=== PATIENT | female | born 1940 | race Caucasian/White ===

== ENCOUNTER → 2016-10-04 | Outpatient (CLI) | payer OTHER, BC ==
[~2016-10-04] MED LIST: CALCTAB5 PO; CITRUCEL PO; COEN1CAP46 PO; FLVHFA110 INH; GLUCOSAMINE/CHOND PO; LEVO1TAB33 PO; LISI-461 PO; MULT-506 PO; OMEG10007 PO; RED YEAST RICE PO; TIZA4CAP PO
--- NOTE | 2016-10-04 13:11 | MAMMOGRAPHY REPORT ---
BILATERAL DIGITAL SCREENING MAMMOGRAM WITH CAD: 10/04/2016 CLINICAL HISTORY: Routine screening. Patient has no complaints. TECHNIQUE: Current study was also evaluated with a Computer Aided Detection (CAD) system. Bilatera l CC and MLO views were obtained. COMPARISON: Comparison is made to exams dated: 10/02/2015 mammogram, 09/28/2014 mammogram, 09/13/2013 mammogram, 09/09/2012 mammogram, 09/09/2011 mammogram, and 08/23/2010 mammogram - [facility]. BREAST COMPOSITION: There are scattered areas of fibroglandular density in both breasts. FINDINGS: No suspicious masses, calcifications, or areas of architectural distortion are noted in e ither breast. There has been no significant interval change compared to prior exams. Bilateral asym metries and bilateral benign-appearing calcifications are not significantly changed. IMPRESSION: ACR BI-RADS CATEGORY 2: BENIGN There is no mammographic evidence of malignancy. A 1 year screening mammogram is recommended. The p atient will receive written notification of the results. Approximately 10% of breast cancers are not detected with mammography. A negative mammographic repor t should not delay biopsy if a clinically suggestive mass is present. Anahi Marcelino M.D. ah/:10/04/2016 07:46:09 Yield Loss Inspector: Kristie GUNTER(Carolin)(M), [facility] letter sent: Normal 1/2 BI-RADS Code: ACR BI-RADS Category 2: Benign
== END | disposition home or self-care (01) ==
LOC: C.MAMM 07:30
PROVIDERS: ATTEND Family Medicine
DX: Z12.31 Encounter for screening mammogram for malignant neoplasm of breast (principal)

== ENCOUNTER → 2017-06-06 | Outpatient (CLI) | payer OTHER, BC | END | disposition home or self-care (01) | LOC: C.RDSM 08:00 | PROVIDERS: ATTEND Orthopaedic Surgery | DX: R52 Pain, unspecified (principal) ==

== ENCOUNTER → 2017-10-08 | Outpatient (CLI) | payer OTHER, BC ==
--- NOTE | 2017-10-08 14:22 | MAMMOGRAPHY REPORT ---
BILATERAL DIGITAL SCREENING MAMMOGRAM TOMOSYNTHESIS WITH CAD: 10/08/2017 CLINICAL HISTORY: Routine screening. Patient has no complaints. TECHNIQUE: Breast tomosynthesis in addition to standard 2D mammography was performed. Current study was also evaluated with a Computer Aided Detection (CAD) system. COMPARISON: Comparison is made to exams dated: 10/04/2016 mammogram, 10/02/2015 mammogram, 09/28/2014 m ammogram, 09/13/2013 mammogram, 09/09/2012 mammogram, and 09/09/2011 mammogram - [facility] enter. BREAST COMPOSITION: There are scattered areas of fibroglandular density in both breasts. 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 Stable focal asymmetry in the upper outer posterior right breast. Stabl e nodular asymmetries in the right breast along the posterior nipple line on the CC view, medial and lateral left breast. No suspicious mass, architectural distortion or cluster of microcalcifications is seen. IMPRESSION: ACR BI-RADS CATEGORY 1: NEGATIVE There is no mammographic evidence of malignancy. A 1 year screening mammogram is recommended. The pa tient will receive written notification of the results. Approximately 10% of breast cancers are not detected with mammography. A negative mammographic report should not delay biopsy if a clinically suggestive mass is present. Miranda Reaves M.D. ay/:10/08/2017 07:55:50 Ethanol Operator: Amee Brizuela [facility] letter sent: Normal 1/2 BI-RADS Code: ACR BI-RADS Category 1: Negative
== END | disposition home or self-care (01) ==
LOC: C.MAMM 07:27
PROVIDERS: ATTEND Family Medicine
DX: Z12.31 Encounter for screening mammogram for malignant neoplasm of breast (principal)

== ENCOUNTER 2022-05-02 05:31 | Observation (INO) ==
--- NOTE | 2022-04-08 11:36 | PAT Medication Instructions ---
Medication Instructions Date of Service April 08, 2022 Home Medications calcium carbonate 600 mg-vitamin D3 20 mcg (800 unit) chewable tablet (Caltrate 600 plus D) 1 tab PO BID coQ10 (ubiquinol) 200 mg capsule 200 mg PO QAM glucosamine sulf dipot chlr,msm,chond 550 mg-C 30 mg-viridiana 1 mg capsule (Glucosamine Chondroitin) 2 cap PO QAM lisinopril 10 mg tablet 10 mg PO QAM methylcellulose (laxative) 500 mg tablet (Citrucel) 500 mg PO QAM multivitamin 1 tab PO QAM omega 3-chy-ugd-fish oil 1,000 mg (120 mg-180 mg) capsule (Fish Oil) 1 cap PO QAM albuterol 90 mcg/actuation aerosol inhaler 90 mcg inhalation UD PRN atorvastatin 10 mg tablet (Lipitor) 10 mg PO QAM lactobacillus combination no.4 3 billion cell capsule (Probiotic) 3,000 mmu cells PO QAM mometasone 50 mcg/actuation nasal spray 2 spray intranasal QAM STOP taking 2 weeks before surgery coQ10 (ubiquinol) 200 mg capsule 200 mg PO QAM glucosamine sulf dipot chlr,msm,chond 550 mg-C 30 mg-viridiana 1 mg capsule (Glucosamine Chondroitin) 2 cap PO QAM omega 8-jwj-liw-fish oil 1,000 mg (120 mg-180 mg) capsule (Fish Oil) 1 cap PO QAM DO NOT take the morning of surgery calcium carbonate 600 mg-vitamin D3 20 mcg (800 unit) chewable tablet (Caltrate 600 plus D) 1 tab PO BID lisinopril 10 mg tablet 10 mg PO QAM methylcellulose (laxative) 500 mg tablet (Citrucel) 500 mg PO QAM multivitamin 1 tab PO QAM lactobacillus combination no.4 3 billion cell capsule (Probiotic) 3,000 mmu cells PO QAM Take morning of surgery With a small sip of water, OTHERWISE NOTHING TO EAT OR DRINK AFTER MIDNIGHT: albuterol 90 mcg/actuation aerosol inhaler 90 mcg inhalation UD PRN(use if needed; please bring with you to hospital day of surgery if possible) atorvastatin 10 mg tablet (Lipitor) 10 mg PO QAM mometasone 50 mcg/actuation nasal spray 2 spray intranasal QAM Take evening before surgery calcium carbonate 600 mg-vitamin D3 20 mcg (800 unit) chewable tablet (Caltrate 600 plus D) 1 tab PO BID albuterol 90 mcg/actuation aerosol inhaler 90 mcg inhalation UD PRN(if needed) Other Notes If you have any questions please call us at [phone] or [phone] or [phone] or [phone]
--- NOTE | 2022-04-10 11:19 | Anesthesiology Consultation ---
Date of Service April 10, 2022 Assessment & Plan (1) Encounter for pre-operative examination: - awaiting stress testing and cardiology clearance. Stress test scheduled 04/18/22 per pt. - cardiology 04/03/22 [facility]: "...preoperative cardiovascular evaluation, bifascicular block...occasional bilateral pedal edema over the years...risk stratification prior to orthopedic surgery. Stress testing recommended due to limited functional capacity, abnormal ECG, risk factors, and soft systolic murmur on examination...Patient instructed to monitor for any lightheadedness, dizziness, syncope, or near syncope..." - PCP 04/01/22 [facility]: "...L [facility] replacement...[facility]...sometimes coming out of anesthesia she gets some nausea...EKG shows a new bifascicular block...get in with cardiology before clearing for surgery. Outside of her further visit with cardiology she is optimized for surgery with low likelihood of sariah-operative complications..." Outpatient joint assessment: Patient is currently scheduled for inpatient pathway. If re-evaluated pending system levels during current pandemic/surgeon requests outpatient pathway, patient is not acceptable candidate for outpatient joint program from anesthesia standpoint. Chart Review Chart Review: Pending: Refer to Additional Notes / Consult section and Patient seen in Pre Admission Testing Teaching & Discussion Pre-Anesthesia Teaching/Discussion Notes: Instructed NPO after midnight before surgery, except medications with 15 cc of water. Medication instructions provided according to the PAT guidelines. History Surgery Operation Date: 05/02/22 07:00 Proposed Procedures p Left Total Knee Arthroplasty, Possible Lateral Retinacular - Akhil Hodges MD Height/Weight Height: 5 ft 4 in Weight: 81.7 kg Allergies Allergy/AdvReac Type Severity Reaction Status Date / Time Sulfa (Sulfonamide Allergy Mild Unknown Verified 04/05/22 09:17 Antibiotics) Medications Home Medications Medication Instructions Recorded Confirmed Last Taken calcium carbonate 600 mg-vitamin 1 tab PO BID 10/12/18 04/05/22 10/12/18 D3 20 mcg (800 unit) chewable tablet (Caltrate 600 plus D) coQ10 (ubiquinol) 200 mg capsule 200 mg PO QAM 10/12/18 04/05/22 10/12/18 glucosamine sulf dipot 2 cap PO QAM 10/12/18 04/05/22 10/12/18 chlr,msm,chond 550 mg-C 30 mg-viridiana 1 mg capsule (Glucosamine Chondroitin) lisinopril 10 mg tablet 10 mg PO QAM 10/12/18 04/05/22 10/11/18 methylcellulose (laxative) 500 mg 500 mg PO QAM 10/12/18 04/05/22 10/12/18 tablet (Citrucel) multivitamin 1 tab PO QAM 10/12/18 04/05/22 10/12/18 omega 6-dpi-ivj-fish oil 1,000 mg 1 cap PO QAM 10/12/18 04/05/22 10/12/18 (120 mg-180 mg) capsule (Fish Oil) albuterol 90 mcg/actuation aerosol 90 mcg inhalation UD PRN Shortness 04/05/22 04/05/22 Unknown inhaler Of Breath Or Wheezing atorvastatin 10 mg tablet (Lipitor) 10 mg PO QAM 04/05/22 04/05/22 Unknown lactobacillus combination no.4 3 3,000 mmu cells PO QAM 04/05/22 04/05/22 Unknown billion cell capsule (Probiotic) mometasone 50 mcg/actuation nasal 2 spray intranasal QAM 04/05/22 04/05/22 Unknown spray Past Medical History Medical History Bifascicular block new, upcoming stress test ordered by [facility] cardiology Esophageal reflux controlled, stable pe rpt Hearing loss History of skin cancer multiple, melanoma, pt states also multiple other types Hyperlipidemia Hypertension controlled, stable per pt Mild asthma has not used inhaler in a year or two Nausea and vomiting after administration of anesthetic agent and took a while "to come around"; denies needing scop patch Prediabetes A1c < 6.5% Patient denies h/o stroke, seizures, heart attack, heart failure, blood clots or blood transfusions. Exercise / Class Metabolic Activity III < 4 Walking/Shop/Light housework (denies CP or SOB with usual activities) Past Family History Family History Other No family history of adverse response to anesthesia Past Surgical History Surgical History History of appendectomy Hx of arthroscopic knee surgery pt unsure, believes L Hx of bladder repair surgery bladder tack Hx of cataract extraction Hx of cholecystectomy Hx of colonoscopy Hx of hemorrhoidectomy Hx of hernia repair Hx of laparoscopy appendix and ovarian cyst removed Past Anesthesia History No Family Hx of Anesthesia Complications and Other (slow to wake, denies re- intubation) History of PONV No Hx of Motion Sickness and History of PONV (jarrett needing scop patch) Social History Smoking Status: Never smoker Do You Dip or Chew Tobacco: No Hx Alcohol Use: Yes (socially) alcohol intake frequency: a few times a week Hx Substance Use: No substance use type: does not use Review of Systems Snoring, denies witnessed apneas. She reports negative sleep study yrs ago. Patient denies chest pain, shortness of breath, dyspnea on exertion, fever, chills, cough, wheezing, dizziness, lightheadedness, near syncope, or palpitations. Physical Exam Vital Signs Vitals BP 142/84 manual P 66 TEMP 97.7 SP02 96% on RA RESP 17 Physical Full cervical extension range of motion without pain TMD 3.5 finger breadths Mallampati Score 3 Dentition: intact, several caps/crowns and veneers upper front; denies chipped or loose teeth, or bridges Lungs: normal respiratory effort. Clear throughout to auscultation, no adventitious breath sounds Cardiac: regular rate and rhythm, 2/6 systolic murmur noted Carotid arteries: negative bruit bilat Lab Results Anesthesia Preop Results Results Anesthesia Widget: WBC 5.58 K/ul (4.8-10.8) 04/10/22 Hgb 13.6 g/dl (12.0-16.0) 04/10/22 Hct 40.4 % (34.1-44.9) 04/10/22 Plt 176 K/uL (130-400) 04/10/22 Na 139 mmol/L (136-145) 04/10/22 K 4.1 mmol/L (3.5-5.1) 04/10/22 Cl 107 mmol/L (98-107) 04/10/22 CO2 27 mmol/L (21-32) 04/10/22 BUN 24 mg/dl (6-23) H 04/10/22 Creat 0.72 mg/dl (0.6-1.2) 04/10/22 Glucose Level 91 mg/dl (70-99(Fasting)) 04/10/22 PT 11.3 Seconds (9.0-12.0) 04/10/22 PTT 26.8 Seconds (21.0-31.0) 04/10/22 INR 1.1 (0.9-1.1) 04/10/22 Urine Color Yellow 04/10/22 Urine Appearance Clear (Clear) 04/10/22 Urine pH 7.5 (4.5-7.5) 04/10/22 Urine Specific [place] 1.019 (1.000-1.030) 04/10/22 Urine Protein Negative (Negative) 04/10/22 Urine Glucose (UA) Negative (Negative) 04/10/22 Urine Ketones Negative (Negative) 04/10/22 Urine Blood Negative (Negative) 04/10/22 Urine Nitrite Negative (Negative) 04/10/22 Urine Bilirubin Negative (Negative) 04/10/22 Urine Urobilinogen Negative (Negative) 04/10/22 Urine Leukocyte Esterase Trace (Negative) H 04/10/22 Urine WBC (Auto) 1-5 /hpf (0-5) 04/10/22 Urine RBC (Auto) 0-4 /hpf (0-4) 04/10/22 Urine Hyaline Casts (Auto) 0 /lpf (0-5) 04/10/22 Urine Epithelial Cells (Auto) 20-30 /lpf (0-5) H 04/10/22 Urine Bacteria (Auto) Negative (Negative) 04/10/22 Blood Type A Positive 04/10/22 Antibody Screen NEGATIVE 04/10/22 Testing Laboratory Results A1c 5.8% 02/18/22 Electrocardiogram Date: 04/01/22 Sinus bradycardia, rate 57 bpm RBBB Left anterior fascicular block Bifascicular block Moderate voltage criteria for LVH, may be normal variant Bifascicular block is now present COVID-19 Risk Screen Screening Information COVID-19 Screen Date: 04/10/22 Exposure 21 Days Family/Household +COVID Last 21 Days: No Exposure 10 Days Any COVID Exposure Last 10 Days: No Symptoms Last 10 Days Experienced COVID Sx Last 10 Days: No + COVID 0-90 Days COVID + in Last 0-90 Days: No
--- NOTE | 2022-04-10 14:19 | History & Physical Report ---
Date of Service April 10, 2022 Assessment & Plan (1) Osteoarthritis of left knee: Plan: PRE-OP Diagnosis: Left knee osteoarthritis Planned Procedure: Left total knee arthroplasty; possible lateral retinacular release Plan: Scheduled to undergo this procedure at the [facility] with a 23-hour observation admission on April with Dr. Hodges. Risks and complications of the procedure such as: Infection, bleeding, pain, scarring, nerve blood vessel damage, weakness, wound problems, stiffness, incomplete relief of symptoms, hardware failure, hardware loosening, wear, fracture, tendon or ligament injury, blood clots, embolism, heart attack, stroke and were explained to the patient at her visit today. Informed consent to perform the procedure was obtained. Patient also understands risks of proceeding with surgical intervention during the COVID-19 pandemic. Currently she is asymptomatic and has not been in contact with anyone positive for the virus recently. Patient is scheduled to meet with anesthesia later this morning. While there she will obtain a CBC with differential, complete metabolic panel, PT/INR, blood type and screen, urinalysis, urine culture and sensitivity, EKG, hemoglobin A1c and a nasal culture for MRSA. Patient states that she went with her primary care provider on April 01 for her preoperative clearance. She was also recommended to see a blueprint tracer. She states she has an appointment with Dr. Alvarez on April 18. I provided her with a clearance form to take with her at that appointment. During today's visit we reviewed the total knee packet. We discussed discharge planning from the hospital. Patient states that she will do her rehab at [facility]. I provided her with an order for physical therapy. Patient states that she has a walker she will bring with her on the day of the procedure. I provided her with paperwork to obtain a handicap placard for her vehicle. We talked about antibiotic use before dental procedures after having joint replacement surgery. I also provided her with information about lectures that [facility] offers about total joint replacement surgery and provide her with contact information to set up a Zoom appointment. Advised the patient that she will be discharged from the hospital on postoperative day 1 if she does well with physical therapy. I will be sure that she has prescriptions for narcotic pain medication and anti- inflammatory. We will have her on an 81 mg aspirin twice daily for the first month following surgery. Patient is scheduled for 2-week postoperative follow- up with myself on May 17 at 2 PM. Patient verbalized understanding of all information provided during today's visit. She thinks for the care that she received. She has questions or concerns should arise prior to surgery, she will contact clinic. This chart was completed utilizing RoomActually voice recognition software. Grammatical errors, random word insertions, pronoun errors, and in complete sentences are an occasional consequence of the system. Any questions or concerns about the content, text, or information contained within the body of this dictation should be addressed directly to the physician for clarification. History of Present Illness Chief Complaint: Chief Complaint: Left knee pain Primary Care Provider: Jaylyn Garcia DO History of Present Illness (including history relevant to procedure): This 82-year-old female presents the clinic today for preoperative history and physical. Patient complains of a several year history of significant left knee pain. She states she has had corticosteroid injections, viscosupplementation injections, use nonsteroidal agents and attended physical therapy. She states over the past few months the pain has become much worse, limiting her from partaking in exercise classes. She states that at times she has difficulty transitioning from a seated to a standing position. Patient feels that she is tried all conservative measures and at this point is ready to proceed with surgical intervention. Patient lives at [facility]. Review Of Systems: A 12 point review of systems is performed and is unremarkable except for those things stated in the HPI and past medical history. Past Medical History: Problems: Left knee DJD Hypertension Asthma Hypercholesterolemia Hiatal hernia Obesity History of melanoma Procedure History Procedure Procedure Date Comments Hernia repair Ovarian cyst vision - on ovary Bladder Cholecystectomy Appendectomy Bilateral cataract Tonsillectomy/adenoidectomy - sling Allergies and Sensitivities: sulfa drugs(unknown) Social history: Patient states she drinks between 2 and 3 alcoholic beverages per week. She denies tobacco or illicit drug use Family history: Cancer Current Home Meds: (Last Updated 04/10 10:18) atorvastatin (Lipitor) 10 mg 3x / week calcium citrate (calcium (as calcium citrate) 250 mg oral tablet) calcium-vitamin D (Citracal + D) chondroitin-glucosamine (Osteo Bi-Flex) diclofenac topical (Voltaren 1% topical gel) 1 appl topical qid PRN: Pain 4g to affected area 4 times a day lisinopril mometasone nasal (Nasonex 50 mcg/inh nasal spray) multivitamin omega-3 polyunsaturated fatty acids (EPA Fish Oil) sodium hyaluronate (Supartz FX 10 mg/mL intra-articular solution) INJECT 1 SYRINGE INTRA-ARTICULARLY INTO THE LEFT KNEE ONCE EVERY 7 DAYS FOR 3 WEEKS ubiquinone (CoQ10) Allergies Allergy/AdvReac Type Severity Reaction Status Date / Time Sulfa (Sulfonamide Allergy Mild Unknown Verified 04/05/22 09:17 Antibiotics) Home Medications Medication Instructions Recorded Confirmed Type calcium carbonate 600 mg-vitamin 1 tab PO BID 10/12/18 04/05/22 History D3 20 mcg (800 unit) chewable tablet (Caltrate 600 plus D) coQ10 (ubiquinol) 200 mg capsule 200 mg PO QAM 10/12/18 04/05/22 History glucosamine sulf dipot 2 cap PO QAM 10/12/18 04/05/22 History chlr,msm,chond 550 mg-C 30 mg-viridiana 1 mg capsule (Glucosamine Chondroitin) lisinopril 10 mg tablet 10 mg PO QAM 10/12/18 04/05/22 History methylcellulose (laxative) 500 mg 500 mg PO QAM 10/12/18 04/05/22 History tablet (Citrucel) multivitamin 1 tab PO QAM 10/12/18 04/05/22 History omega 9-rqm-tjz-fish oil 1,000 mg 1 cap PO QAM 10/12/18 04/05/22 History (120 mg-180 mg) capsule (Fish Oil) albuterol 90 mcg/actuation aerosol 90 mcg inhalation UD PRN Shortness 04/05/22 04/05/22 History inhaler Of Breath Or Wheezing atorvastatin 10 mg tablet (Lipitor) 10 mg PO QAM 04/05/22 04/05/22 History lactobacillus combination no.4 3 3,000 mmu cells PO QAM 04/05/22 04/05/22 History billion cell capsule (Probiotic) mometasone 50 mcg/actuation nasal 2 spray intranasal QAM 04/05/22 04/05/22 History spray Past Med/Surg History Medical History Bifascicular block new, upcoming stress test ordered by [facility] cardiology Esophageal reflux controlled, stable pe rpt Hearing loss History of skin cancer multiple, melanoma, pt states also multiple other types Hyperlipidemia Hypertension controlled, stable per pt Mild asthma has not used inhaler in a year or two Nausea and vomiting after administration of anesthetic agent and took a while "to come around"; denies needing scop patch Prediabetes A1c < 6.5% Surgical History History of appendectomy Hx of arthroscopic knee surgery pt unsure, believes L Hx of bladder repair surgery bladder tack Hx of cataract extraction Hx of cholecystectomy Hx of colonoscopy Hx of hemorrhoidectomy Hx of hernia repair Hx of laparoscopy appendix and ovarian cyst removed Family History Other No family history of adverse response to anesthesia Social History Smoking Status: Never smoker Second Hand Exposure: No; Hx Alcohol Use: Yes (socially) Hx Substance Use: No Preferred Language: Martiniquais Communication Ability: Effective Resin Coater Required: No Beliefs That Will Affect Care: None Current Living Situation: Spouse Feels Safe at Home: Yes Assistive Devices: Glasses and Hearing Aid - Bilateral Review of Systems All systems reviewed & are unremarkable except as noted in Subjective Physical Exam Physical Exam: Physical Exam: (relevant to the procedure, including heart and lung evaluation) General: Alert and oriented x3 with proper grooming and hygiene Eyes: Pupils are equal and reactive to light with accommodation. Extraocular movements are intact Throat: Deferred due to COVID-19 precautions Cardiac: Regular rate and rhythm no murmurs or gallops appreciated Lungs: Clear to auscultation throughout with no wheezing, rales or rhonchi Abdomen: Obese, nondistended, nontender with NABS Extremities: Left knee; range of motion is 4 degrees of extension to about 92 degrees of flexion. Patient experiences some slight medial and lateral joint line tenderness when the knee is palpated in the flexed position. There is audible crepitation with passive range of motion. She has visible valgus malalignment. Her patella is not mobile due to arthritic change within the patellofemoral joint. There is no laxity with varus valgus stressing. AP drawer sign and Kylee test are negative. Patient is neurovascular intact left lower extremity. Neuro: Cranial nerves II through XII are intact with no motor or sensory deficit Skin: Normal in appearance no open skin areas or discharge Results & Data ([facility]) Diagnostic Findings Studies (relevant to the procedure): X-rays done at her last visit back in October of this year are reviewed. She was noted to have [id number] arthritis in the lateral patellofemoral joint and tricompartmental osteophyte formation of the left knee.
[2022-05-02] MEDS ORDERED: ACETAMINOPHEN 500 MG TAB PO SCH (06:00)
[2022-05-02] MEDS ORDERED: TRANEXAMIC ACID 1,000 MG **IV Intra-op IV SCH (06:00)
[2022-05-02] MEDS ORDERED: TRANEXAMIC ACID 1,000 MG **IV Pre-op IV SCH (06:00)
[2022-05-02] MEDS ORDERED: ROPIVACAINE 0.5% HCL/PF 150 MG, BUPIVACAINE 0.75% MPF 20 ML, EPINEPHrine 0.15 MG, Ketor... INFIL SCH (06:00)
[2022-05-02] MEDS ORDERED: LR 500ML BOLUS, THEN 15ML/HR IV SCH (06:00)
[2022-05-02] MEDS ORDERED: traMADol HCL 50 MG TABLET PO SCH (06:00)
[2022-05-02] MEDS ORDERED: ceFAZolin 2000MG 2,000 MG/15 ML SYR IV SCH (06:00)
[2022-05-02] MEDS ORDERED: LR 60ML/HR IV SCH (06:00)
[2022-05-02] MEDS ORDERED: dexAMETHasone 4 MG TAB PO SCH (06:00)
[2022-05-02] MEDS ORDERED: Scopolamine 1 MG TDSY TD SCH (06:00)
[2022-05-02] MEDS ORDERED: ROPIVACAINE 0.5% 5 MG/ML 30 ML VIAL ONE (06:37)
[2022-05-02] MEDS ORDERED: BUPIVACAINE 0.5 % 5 MG/1 ML PF 10ML VIAL ONE (06:37)
--- NOTE | 2022-05-02 06:38 | History & Physical Bridge Note ---
Date of Service May 02, 2022 History & Physical Bridge Note I have examined the patient, reviewed the History & Physical and in the interval since the performance of the History & Physical I have noted the following changes of clinical significance: no changes noted
[2022-05-02] MEDS ORDERED: fentaNYL citrate 100 MCG/2 ML VIAL ONE (07:08)
[2022-05-02] MEDS ORDERED: MIDAZOLAM HCL 1 MG/ML 2ML VIAL ONE (07:09)
[2022-05-02] MEDS ORDERED: fentaNYL citrate 100 MCG/2 ML VIAL IV PRN (07:20)
[2022-05-02] MEDS ORDERED: ePHEDrine sulfate 50 MG/ML AMP IV PRN (07:20)
[2022-05-02] MEDS ORDERED: ONDANSETRON INJ 2 MG/ML 2 ML VIAL IV PRN ×2 (07:20→10:10)
[2022-05-02] MEDS ORDERED: ATROPINE SULFATE 0.1 MG/ML 10ML SYR IV PRN (07:20)
[2022-05-02] MEDS ORDERED: ORTHO JOINT ANESTHETIC ONE (08:11)
[2022-05-02] MEDS ORDERED: PROPOFOL IV EMULSION 10 MG/ML 20 ML VIAL IV ONE (09:41)
[2022-05-02] MEDS ORDERED: LIDOCAINE 2% MPF LOCAL 5 ML VIAL INFIL ONE (09:41)
[2022-05-02] MEDS ORDERED: ONDANSETRON INJ 2 MG/ML 2 ML VIAL ONE (09:41)
[2022-05-02] MEDS ORDERED: HYDROmorphone INJ 0.5 MG/0.5 ML SYR IV PRN (10:10)
[2022-05-02] MEDS ORDERED: METOCLOPRAMIDE HCL INJ 5 MG/ML 2 ML VIAL IV PRN (10:10)
[2022-05-02] MEDS ORDERED: bisacodyL 10 MG SUPP PR PRN (10:10)
[2022-05-02] MEDS ORDERED: ALUMINUM/MAGNESIUM SUSP 30 ML UDC PO PRN (10:10)
[2022-05-02] MEDS ORDERED: oxyCODONE HCL IR 5 MG TAB (IMMEDIATE RELEASE) PO PRN (10:10)
[2022-05-02] MEDS ORDERED: diphenhydrAMINE 50 MG/ML VIAL IV PRN (10:10)
[2022-05-02] MEDS ORDERED: NALOXONE HCL 0.4 MG/1 ML VIAL/CARP IV PRN (10:10)
[2022-05-02] MEDS ORDERED: MAGNESIUM HYDROXIDE SUSP 30 ML UDC PO PRN (10:10)
--- NOTE | 2022-05-02 10:10 | Operative Report ---
Post Operative Report Pre & Post Diagnosis Operation Date: 05/02/22 08:10 Pre-Op Diagnosis: Left Knee Osteoarthritis Post-Op Diagnosis: Left Knee Osteoarthritis I identified the patient and participated in the time-out.: Yes Procedure Operation Date: 05/02/22 08:10 Actual Procedures p Left Total Knee Arthroplasty, Lateral Retinacular Release(Left) - Akhil Hodges MD Surgeon Akhil Hodges MD Zipper Joiner Rolando Cade PAFranc Estimated Blood Loss 100 Findings Consistent with Post-Op Diagnosis Specimens none Description of Procedure I was present during the entire case assisting with positioning, prepping, draping, wound retraction, wound closure, dressing and immobilizer placement. No fellow present. Please see Dr. Hodges procedure note for specifics of the case. I attest to the content of the Intraoperative Record and any orders documented therein. Any exceptions are noted below.
--- NOTE | 2022-05-02 10:11 | Operative Report ---
Post Operative Report Pre & Post Diagnosis Operation Date: 05/02/22 08:10 Pre-Op Diagnosis: Left Knee Osteoarthritis Post-Op Diagnosis: Left Knee Osteoarthritis I identified the patient and participated in the time-out.: Yes Procedure Operation Date: 05/02/22 08:10 Actual Procedures p Left Total Knee Arthroplasty (Left) - Akhil Hodges MD Surgeon Akhil Hodges MD Lens Blank Gauger TY Cade PA-C. No resident or fellow was available to assist. Estimated Blood Loss 100 Findings Consistent with Post-Op Diagnosis Specimens Left knee bone and soft tissue contents Anesthesia Type General Regional Complications none Disposition Disposition: Recovery Room Indications 82-year-old female with left knee osteoarthritis refractory to conservative management. X-rays demonstrate severe trochlear dysplasia and [id number] arthritis in the patellofemoral joint. Tricompartmental osteophytes are noted. I had a long discussion with her about the risks and benefits of surgery, alternatives, and expected outcomes. After reviewing all these she elected proceed with surgery. All questions were answered. Informed consent was signed. Description of Procedure Patient was identified in the preoperative holding area where the surgical site, left knee, was marked. Patient was brought back to the operating room, placed on the operating room table, and IV sedation was administered. A bump was placed underneath the ipsilateral hip. All bony prominences were padded. Perioperative antibiotics and tranexamic acid were administered. Exam under anesthesia was performed. This demonstrated her range of motion to be from 5 to 115 degrees. Ligamentous exam was stable. The surgical site was prepped and draped in the normal sterile fashion. Prior to incision a multidisciplinary timeout was called. All in the room were in agreement. We began by exsanguinating the limb with an Esmarch bandage. Tourniquet was inflated to 250 mmHg. A 14 cm long incision was made over the anterior aspect of the knee. I dissected through the subcutaneous tissues to the level of the fascia. Full-thickness flaps were raised above the fascia. A median parapatellar arthrotomy was made. Half the fat pad was excised. A medial release was performed with Bovie electrocautery on the proximal tibia. Synovitis in the knee and suprapatellar pouch was removed. The knee was inspected and she had severe patellofemoral osteoarthritis completely eburnated with large osteophytes noted circumferentially around the patella as well as thinning of the patellar bone and trochlear dysplasia. The patella was then everted and held with 2 towel clips. Osteophytes around the patella were removed with a rongeur. The thickness of the patella was measured at 18 mm. Patellar resection was performed. Caliper showed the patella thickness now to be 14 mm. A size 32 mm trial was placed and had a great fit. The 3 drill holes were placed then the trial button was placed. The patellar thickness was now 23 mm which I was very happy with. The patellar trial was then removed, the patella was everted and the knee was flexed up. Osteophytes were removed from the femoral condyles and intercondylar notch. The ACL and PCL were excised. Intramedullary drill guide was drilled into the femur. Distal femoral cutting guide was placed set at 5 degrees of valgus to resect 10 mm off the distal femur. Distal femoral resection was made without difficulty. The tibia was then exposed. The lateral meniscus was sharply excised. The tibial cutting jig was positioned to resect 9 mm off the less involved compartment. The jig was then pinned in position and the tibial cut was made. We then brought the knee into full extension. Lamina spreaders were placed. The medial meniscus was excised. The extension block was then placed for 5 mm thickness poly. This gave us full extension and excellent stability to varus and valgus. Next the knee was flexed up and the femoral sizing guide was placed. The patient sized to a size 5 femur. The 3 degree external rotation jig was used to create 2 holes in the distal femur. The jig was removed and the holes were compared to Whitesides axis and the epicondylar axis. We were happy with the rotation, and therefore placed the appropriately sized 4-in-1 cutting jig and pinned this into position. Our 4 cuts were made. The cutting jig was removed. The flexion block was then placed with the knee held at 90 degrees. There was excellent stability to varus and valgus at 90 degrees with no gapping medially or laterally. Next the box cutting jig was placed on the distal femur. The box cut was made and the femoral trial was impacted into position. Lug holes were drilled in the distal femur. We then reexposed the tibia. The tibia was sized to a 5 for a fixed bearing component. The tibial tray with a 5 mm thickness polyethylene liner was placed on the cut tibial surface and the knee was brought through a full range of motion. There was excellent stability to varus valgus stress throughout a full range of motion, which was approximately 0-130 degrees. Patellar tracking was good, no lateral release was necessary. Bovie electrocaut hyun was used to fadia the tibia at the site where the tibial tray rested in full extension. We then flexed up the knee, remove the polyethylene liner, and pinned the tibial tray into position. The intramedullary drill followed by the keel punch were used to prepare the tibia. Next the trial components were removed. I then injected the posterior capsule and periosteum with the periarticular injection cocktail. The bone cuts were then irrigated and dried while the cement was mixed on the back table. The femoral component was cemented on first. Excess cement was removed. A lap sponge was placed over the femoral component for protection, then the tibia was subluxated anteriorly. The all polyethylene tibial component was then cemented in place. Again excess cement was removed. The knee was brought into full extension and held there until the cement cured. The patella was cemented and clamped. Dilute Betadine solution was then allowed to irrigate the knee while the cement cured. Once the cement was fully cured, the tourniquet was let down and meticulous hemostasis was ensured. The wound was irrigated out with copious amounts normal saline. The knee was brought through a full range of motion and we were very happy with the patella tracking and the stability. We then began to close. Interrupted 0 Vicryl suture was used to repair the patellar retinaculum in [id number] fashion. The quadriceps and patellar tendons were run with #1 Vicryl. The deep dermal layer was closed with interrupted 2-0 Vicryl. Dermabond and Zipline was used for the skin, followed by a Silverlon dressing. A compressive Dennys wrap was placed and the knee was placed into a knee immobilizer. Patient's sedation was lifted and was transferred to recovery room in stable condition. Summary of implants: Depuy Attune Posterior Stabilized Cemented Femur, size 5 left Attune All-polyethylene tibial component, posterior stabilized 5 mm thickness, size 5 Attune patella medialized dome, size 32 2 batches of simplex high viscosity bone cement Postoperative course: Patient will be admitted to the floor for pain control and monitoring. Weightbearing as tolerated with a walker with no knee range of motion for 48 hours. Aspirin for DVT prophylaxis. I attest to the content of the Intraoperative Record and any orders documented therein. Any exceptions are noted below.
[2022-05-02] MEDS ORDERED: ALBUTEROL HFA 8 GM INHALER INH PRN (10:14)
--- NOTE | 2022-05-02 10:37 | XRay Report ---
TWO VIEWS LEFT KNEE CLINICAL HISTORY: Postoperative examination. FINDINGS: AP and crosstable lateral portable views of the left knee are obtained. A left knee arthrop lasty is in near anatomic alignment. There has been undersurface remodeling of the patella. No acute fracture is seen. There are expected postoperative changes around the knee including soft tissue da a and subcutaneous gas. IMPRESSION: Expected postoperative changes status post left knee arthroplasty. No acute fracture is s een. ACT 112: Negative or not required by law. Electronically signed by: Andrae Obregon M.D. 05/02/2022 10:36 AM
[2022-05-02] MEDS ORDERED: KETOROLAC 30 MG/ML VIAL ONE (11:55)
[2022-05-02] MEDS: KETOROLAC TROMETHAMINE 15 MG/ML VIAL IV SCH ×3 (11:57→21:30)
--- NOTE | 2022-05-02 12:17 | Anesthesiology Progress Note ---
Date of Service May 02, 2022 Anesthesia Post Procedure Vital Signs Vital Signs: Temp Pulse Pulse Resp BP Pulse Ox O2 Del Method 05/02/22 12:05 59 L 17 125/74 94 Nasal Cannula 05/02/22 11:50 67 15 135/72 94 Nasal Cannula 05/02/22 11:35 65 14 136/72 94 Nasal Cannula 05/02/22 11:20 57 L 12 128/71 95 Nasal Cannula 05/02/22 11:10 56 L 14 128/72 93 Nasal Cannula 05/02/22 11:00 97.3 F L 63 12 119/58 L 92 Nasal Cannula 05/02/22 10:50 64 16 122/68 94 Room Air 05/02/22 10:40 55 L 18 115/72 95 Oxymask 05/02/22 10:30 60 17 127/69 95 Oxymask 05/02/22 10:20 60 14 125/63 96 Oxymask 05/02/22 10:10 97.3 F L 74 12 114/67 94 Oxymask 05/02/22 06:29 98.4 F 66 20 174/93 H 95 Room Air O2 Flow Rate 05/02/22 12:05 2 05/02/22 11:50 2 05/02/22 11:35 2 05/02/22 11:20 2 05/02/22 11:10 2 05/02/22 11:00 2 05/02/22 10:50 05/02/22 10:40 4 05/02/22 10:30 4 05/02/22 10:20 6 05/02/22 10:10 6 05/02/22 06:29 Transfer of Care Handoff Completed per policy Notes Mental Status: alert / awake / arousable and participated in evaluation Patient Amnestic to Procedure: Yes Nausea / Vomiting: adequately controlled Pain: adequately controlled Airway Patency, RR, SpO2: stable & adequate BP & HR: stable & adequate Hydration State: stable & adequate Neuraxial Anesthesia: was administered and sensory block is resolving Anesthetic Complications: no major complications apparent and Pt Satisfied with anesthetic care
[2022-05-02] MEDS: SODIUM CHLORIDE 0.9% 1000ML 1,000 ML IV SCH ×2 (12:20→22:56)
[2022-05-02] MEDS: ACETAMINOPHEN 500 MG TAB PO SCH ×2 (13:59→21:27)
[2022-05-02] MEDS: Scopolamine CHECK PATCH PLACEMENT SCH (15:15)
[2022-05-02] MEDS ORDERED: TRANEXAMIC ACID / 0.7% NACL 1,000 MG/100 ML BAG IV SCH (16:15)
[2022-05-02] MEDS: ceFAZolin 2000MG 2,000 MG/15 ML SYR IV SCH ×2 (17:08→22:55)
[2022-05-02] MEDS ORDERED: SENNA 8.6 MG TAB PO SCH (21:00)
[2022-05-02] MEDS: DOCUSATE SODIUM 100 MG CAP PO SCH (21:30)
[2022-05-02] MEDS: CALCIUM 600MG + VIT D 400 IU TAB PO SCH (22:08)
[2022-05-03] MEDS: Scopolamine CHECK PATCH PLACEMENT SCH ×2 (00:21→07:40)
[2022-05-03] MEDS: KETOROLAC TROMETHAMINE 15 MG/ML VIAL IV SCH (04:27)
[2022-05-03] MEDS: ACETAMINOPHEN 500 MG TAB PO SCH (06:19)
[2022-05-03 07:36] LABS: Hematocrit (blood only) 33.8 % (34.1-44.9); Hemoglobin 11.3 g/dl (12.0-16.0); Mean Corpuscular Hemoglobin 30.6 pg (25.0-34.0); Mean Corpuscular Hgb Conc 33.4 g/dL (32.0-36.0); Mean Corpuscular Volume 91.6 fL (80.0-100.0); Mean Platelet Volume 10.9 fL (9.4-12.3); Platelet Count 159 K/uL (130-400); RDW Coefficient of Variation 12.2 % (11.5-14.5); RDW Standard Deviation 40.9 fL (36.4-46.3); Red Blood Count 3.69 M/uL (3.93-5.22); White Blood Count 7.59 K/ul (4.8-10.8)
[2022-05-03 07:56] LABS: BUN Creatinine Ratio 29.3 (10-20); Calcium 8.3 mg/dl (8.5-10.1); Est GFR (African American) 78.3 ml/min; Est GFR (Non-African American) 67.6 ml/min; Potassium 4.3 mmol/L (3.5-5.1)
[2022-05-03] MEDS ORDERED: dexAMETHasone 4 MG TAB PO SCH (08:00)
[2022-05-03] MEDS ORDERED: NON-FORMULARY MEDICATION (Glucos Sul 2kcl-Msm-Chond-C-Mn [Glucosamine Chondroitin] 550-30- PO SCH (09:00)
[2022-05-03] MEDS ORDERED: METHYLCELLULOSE 500 MG TAB PO SCH (09:00)
[2022-05-03] MEDS ORDERED: ATORVASTATIN 10 MG TAB PO SCH (09:00)
[2022-05-03] MEDS ORDERED: NON-FORMULARY MEDICATION (Coq10 (Ubiquinol) 200 mg Capsule) PO SCH (09:00)
[2022-05-03] MEDS ORDERED: lisinopril 10 MG TAB PO SCH (09:00)
[2022-05-03] MEDS ORDERED: ASPIRIN 81 MG ECTAB PO SCH (09:00)
[2022-05-03] MEDS ORDERED: FLUTICASONE PROPIONATE NA SPR 16 GM BTL NAE SCH (09:00)
[2022-05-03] MEDS ORDERED: ADVANCED PROBIOTIC 1250 MG CAPSULE PO SCH (09:00)
[2022-05-03] MEDS ORDERED: OMEGA-3 (PURIFIED FISH OIL) 1 GM CAP PO SCH (09:00)
[2022-05-03] MEDS ORDERED: MULTIVITAMIN TAB PO SCH ×2 (09:00)
[2022-05-03] MEDS ORDERED: METHYLCELLULOSE POWDER 454 GM JAR PO SCH (09:00)
[2022-05-03] MEDS: DOCUSATE SODIUM 100 MG CAP PO SCH (09:21)
[2022-05-03] MEDS: CALCIUM 600MG + VIT D 400 IU TAB PO SCH (09:21)
--- NOTE | 2022-05-03 10:36 | Orthopedic Progress Note ---
Date of Service May 03, 2022 Assessment & Plan (1) S/P total knee arthroplasty: Plan: PT/OT Weightbearing as tolerated with immobilizer and walker. Immobilizer only days to be used for the first 48 hours postoperatively DVT prophylaxis with aspirin and ZACHARY stockings Ice with easy wrap Pain control with p.o. medication Keep Silverlon dressing in place Plan is to discharge home today with her rehab to be done to [facility]. Follow-up with [facility] orthopedics as previously scheduled With questions contact our clinic at [phone]. Admission and Anticipated Discharge Date Admission Date: May 02, 2022 Subjective This 82-year-old female is day 1 status post left total knee arthroplasty. She states she doing very well. She states that her pain is well controlled with p.o. pain medication. She states she has been able to transition from her bed to the chair from her chair to the bathroom using her walker and immobilizer without issue. Patient is asked to be discharged home today. She currently resides at [facility] and plans on doing her rehab there. Currently she denies any chest pain, shortness of breath, fever, chills, sweats, numbness or tingling in her left lower extremity or any significant weakness. Review of Systems Review of Systems: All systems reviewed & are unremarkable except as noted in Subjective Physical Exam Physical Exam: Left knee; Outer dressings were removed. Silverlon is clean dry and intact and kept in place. ZACHARY stockings were applied. Patient is able to actively perform a straight leg raise test. She is able to actively dorsi and plantarflex her foot without issue. Active knee range of motion is from 0 degrees of extension to about 80 degrees of flexion. There are some mild edema with no erythema, ecchymosis, or the popliteal deformity. Quad strength is 3+ out of 5. Patient does have some tenderness to palpation at the site of the tourniquet. Otherwise she is neurovascularly intact in left lower extremity. Results & Data ([facility]) Vital Signs (Past 12 Hours) Vital Signs Temp Pulse Pulse Resp BP Pulse Ox O2 Del Method 05/03/22 07:45 36.7 C 54 L 18 122/70 97 Room Air 05/03/22 04:00 36.7 C 60 16 110/60 95 Room Air 05/02/22 23:42 36.7 C 60 16 134/71 96 Room Air Diagnostic Findings Laboratory Results WBC 7.59 K/ul (4.8-10.8) 05/03/22 06:45 RBC 3.69 M/uL (3.93-5.22) L 05/03/22 06:45 Hgb 11.3 g/dl (12.0-16.0) L 05/03/22 06:45 Hct 33.8 % (34.1-44.9) L 05/03/22 06:45 MCV 91.6 fL (80.0-100.0) 05/03/22 06:45 MCH 30.6 pg (25.0-34.0) 05/03/22 06:45 MCHC 33.4 g/dL (32.0-36.0) 05/03/22 06:45 RDW Std Deviation 40.9 fL (36.4-46.3) 05/03/22 06:45 RDW Coeff of Rebeca 12.2 % (11.5-14.5) 05/03/22 06:45 Plt Count 159 K/uL (130-400) 05/03/22 06:45 MPV 10.9 fL (9.4-12.3) 05/03/22 06:45 Sodium 139 mmol/L (136-145) 05/03/22 06:45 Potassium 4.3 mmol/L (3.5-5.1) 05/03/22 06:45 Chloride 107 mmol/L (98-107) 05/03/22 06:45 Carbon Dioxide 28 mmol/L (21-32) 05/03/22 06:45 Anion Gap 4 (3-11) 05/03/22 06:45 BUN 24 mg/dl (6-23) H 05/03/22 06:45 Creatinine 0.82 mg/dl (0.6-1.2) 05/03/22 06:45 Est Cr Clr Drug Dosing 57.0 ml/min 05/03/22 06:45 Est GFR ( Amer) 78.3 ml/min 05/03/22 06:45 Est GFR (Non-Af Amer) 67.6 ml/min 05/03/22 06:45 BUN/Creatinine Ratio 29.3 (10-20) H 05/03/22 06:45 Glucose 123 mg/dl (70-99(Fasting)) H 05/03/22 06:45 Calcium 8.3 mg/dl (8.5-10.1) L 05/03/22 06:45 SARS-CoV-2, RNA, NAAT NEGATIVE (NEGATIVE) 05/02/22 Unknown Impressions Knee X-Ray 05/02/22 10:13 TWO VIEWS LEFT KNEE CLINICAL HISTORY: Postoperative examination. FINDINGS: AP and crosstable lateral portable views of the left knee are obtained. A left knee arthroplasty is in near anatomic alignment. There has been undersurface remodeling of the patella. No acute fracture is seen. There are expected postoperative changes around the knee including soft tissue edema and subcutaneous gas. IMPRESSION: Expected postoperative changes status post left knee arthroplasty. No acute fracture is seen. ACT 112: Negative or not required by law. Electronically signed by: Andrae Obregon M.D. 05/02/2022 10:36 AM
--- NOTE | 2022-05-03 10:43 | Discharge Summary ---
Date of Service May 03, 2022 Admission HPI Per Admitting Provider History of Present Illness (including history relevant to procedure): This 82-year-old female presents the clinic today for preoperative history and physical. Patient complains of a several year history of significant left knee pain. She states she has had corticosteroid injections, viscosupplementation injections, use nonsteroidal agents and attended physical therapy. She states over the past few months the pain has become much worse, limiting her from partaking in exercise classes. She states that at times she has difficulty transitioning from a seated to a standing position. Patient feels that she is tried all conservative measures and at this point is ready to proceed with surgical intervention. Patient lives at [facility]. Review Of Systems: A 12 point review of systems is performed and is unremarkable except for those things stated in the HPI and past medical history. Past Medical History: Problems: Left knee DJD Hypertension Asthma Hypercholesterolemia Hiatal hernia Obesity History of melanoma Procedure History Procedure Procedure Date Comments Hernia repair Ovarian cyst vision - on ovary Bladder Cholecystectomy Appendectomy Bilateral cataract Tonsillectomy/adenoidectomy - sling Allergies and Sensitivities: sulfa drugs(unknown) Social history: Patient states she drinks between 2 and 3 alcoholic beverages per week. She denies tobacco or illicit drug use Family history: Cancer Current Home Meds: (Last Updated 04/10 10:18) atorvastatin (Lipitor) 10 mg 3x / week calcium citrate (calcium (as calcium citrate) 250 mg oral tablet) calcium-vitamin D (Citracal + D) chondroitin-glucosamine (Osteo Bi-Flex) diclofenac topical (Voltaren 1% topical gel) 1 appl topical qid PRN: Pain 4g to affected area 4 times a day lisinopril mometasone nasal (Nasonex 50 mcg/inh nasal spray) multivitamin omega-3 polyunsaturated fatty acids (EPA Fish Oil) sodium hyaluronate (Supartz FX 10 mg/mL intra-articular solution) INJECT 1 SYRINGE INTRA-ARTICULARLY INTO THE LEFT KNEE ONCE EVERY 7 DAYS FOR 3 WEEKS ubiquinone (CoQ10) Admission Exam Per Admitting Provider Physical Exam: (relevant to the procedure, including heart and lung evaluation) General: Alert and oriented x3 with proper grooming and hygiene Eyes: Pupils are equal and reactive to light with accommodation. Extraocular movements are intact Throat: Deferred due to COVID-19 precautions Cardiac: Regular rate and rhythm no murmurs or gallops appreciated Lungs: Clear to auscultation throughout with no wheezing, rales or rhonchi Abdomen: Obese, nondistended, nontender with NABS Extremities: Left knee; range of motion is 4 degrees of extension to about 92 degrees of flexion. Patient experiences some slight medial and lateral joint line tenderness when the knee is palpated in the flexed position. There is audible crepitation with passive range of motion. She has visible valgus malalignment. Her patella is not mobile due to arthritic change within the patellofemoral joint. There is no laxity with varus valgus stressing. AP drawer sign and Kylee test are negative. Patient is neurovascular intact left lower extremity. Neuro: Cranial nerves II through XII are intact with no motor or sensory deficit Skin: Normal in appearance no open skin areas or discharge Principal Diagnosis Left knee osteoarthritis Discharge Exam Left knee; Outer dressings were removed. Silverlon is clean dry and intact and kept in place. ZACHARY stockings were applied. Patient is able to actively perform a straight leg raise test. She is able to actively dorsi and plantarflex her foot without issue. Active knee range of motion is from 0 degrees of extension to about 80 degrees of flexion. There are some mild edema with no erythema, ecchymosis, or the popliteal deformity. Quad strength is 3+ out of 5. Patient does have some tenderness to palpation at the site of the tourniquet. Otherwise she is neurovascularly intact in left lower extremity. Discharge Data Allergies Allergy/AdvReac Type Severity Reaction Status Date / Time Sulfa (Sulfonamide Allergy Mild Unknown Verified 05/02/22 05:50 Antibiotics) Procedures Performed Operation Date: 05/02/22 08:10 Actual Procedures p Left Total Knee Arthroplasty, Lateral Retinacular Release(Left) - Akhil Hodges MD Ordered Studies 05/02/22 05:00 US - OR guided needle placemen Routine Hospital Course (1) S/P total knee arthroplasty: Patient had an uneventful overnight stay following left total knee arthroplasty. Plan is to discharge home later today. She will go back to [facility] at her assisted living facility and do her rehab there. She is very pleased with the results of her surgery and will follow-up in our clinic as previously scheduled. PT/OT Weightbearing as tolerated with immobilizer and walker. Immobilizer only days to be used for the first 48 hours postoperatively DVT prophylaxis with aspirin and ZACHARY stockings Ice with easy wrap Pain control with p.o. medication Keep Silverlon dressing in place Plan is to discharge home today with her rehab to be done to [facility]. Follow-up with [facility] orthopedics as previously scheduled With questions contact our clinic at [phone]. Total Time Total Time Spent Total Time Spent (In Minutes): 20 mins Discharge Plan Discharge Items Patient Disposition: Home - Home Health Services Reason For Visit: Left Knee Osteoarthritis Discharge Diagnosis: Left Knee Osteoarthritis Activity: As commented below Lifting: None Bathing: Keep incision dry Bathing Comment: May shower tomorrow Sexual Activity: Wait until after follow-up appointment Exercise/Sports: Wait until after follow-up appointment Driving/Machine Use: No driving until cleared by monitoring specialist Weightbearing: Left weightbearing Weightbearing Comment: as tolerated with immobilizer (48 hrs) and walker assistance Non-emergency contact: Surgeon Call non-emergency contact if: you have any medication questions, your pain is not controlled, your temperature is above 101.5, your wound has increased drainage and your wound pain has increased Follow-up/Referrals: Jaylyn Garcia, DO [Primary Care Provider] - Diet: Regular Addtl Attending Provider Instructions: Post-operative Instructions Dear Patient and Family/Friends, Before you are discharged from the hospital, it is important to know what to expect when you get home after surgery. To that end, we have created this sheet of discharge instructions which covers many commonly asked questions. Make sure you go through this sheet in its entirety with your nurse before you are discharged. Please note that we will go over the specifics of your surgery and recovery when you return for your first post-operative visit. Sincerely, Dr. Hodges Medications 1. Oxycodone 5 mg: take 1-2 tabs every 4-6 hours as needed for post operative pain relief. This will be sent to your pharmacy. 2. Diclofenac Sodium 75 mg: take 1 tablet twice daily for 30 days post operatively for pain and inflammation relief. This will also be sent to your pharmacy with 1 refill. 3. Aspirin 81 mg: take 1 tab twice daily for 30 days post operatively for blood clot prevention. Please purchase. 4. Extra Strength Tylenol 500 mg: take 2 tabs every 6-8 hours as needed for additional pain relief. Please purchase. Pain Expect to be in a fair amount of pain after surgery. Remember, our goal is not to eliminate your pain, but to make it tolerable. It is a good idea to stay ahead of your pain by taking the medications you were prescribed once you get home. Typically, the pain starts improving 3-7 days after surgery. You should start weaning off the narcotic pain medication (oxycodone, hydrocodone, hydromorphone, morphine) as soon as your pain improves. Please call our office if your pain is not adequately controlled. Ice Ice your operative site at least 5 times a day for 15-30 minutes at a time. Make sure you have a thin cloth between the ice or cooling unit and your skin to prevent llamas bite. This is especially important if you received a nerve block. Continue icing your operative site for the first 5-7 days after surgery, then as needed. Diet/Nausea/Vomiting Start by drinking clear liquids and eating crackers. If you can tolerate this, then you may resume your normal diet. If you feel nauseated or vomit, take Zofran/ondansetron (if prescribed). Please call our office if you have intractable nausea or vomiting, or, if after hours, you may go to the Emergency Room for help. Constipation Constipation is a common side effect of narcotic pain medication. If you have not had a bowel movement within 2 days after surgery, we recommend purchasing an over the counter laxative such as Milk of Magnesia, Dulcolax, or Miralax from a local pharmacy, and taking it as instructed. Call our clinic if any questions. Slings and Braces If you were placed in a sling or brace, it must be worn at all times, including sleep. You may remove your sling or brace for physical therapy, home exercises, and showering. The length of time you will be in your brace and range of motion restrictions depends on what surgery you had; these details will be reviewed at your first post-operative appointment. Nerve block The anesthesia team sometimes places a nerve block to help with post-operative pain control. This results in significant numbness and inability to move the extremity. The nerve block usually wears off in 8-12 hours, but sometimes can last up to 24 hours. Please call our office if you are still unable to move your extremity after 24 hours, unless you received a pain pump to take home. Nerve blocks typically wear off quickly, so start taking pain medication as soon as you start feeling soreness near your surgical site. Weight bearing and Range of Motion. Do not bear any weight through your operative extremity immediately after surgery. If you had upper extremity surgery, do not lift anything with that arm. If you are in a knee brace, keep it locked in place until your follow-up. We will discuss your weight bearing, range of motion, and lifting restrictions in detail at your first post-operative appointment. Continuous Passive Motion (CPM) Machine If you were prescribed a CPM machine, it will start after your first post- operative appointment, at which time we will give you instructions on the range of motion settings and duration of treatment Physical therapy You will be given a prescription for physical therapy or occupational therapy at your first post-operative appointment. Typically, patients start therapy within 1 week of surgery Wound care and showering We will inspect your wound at your first post-operative visit, and may do a dressing change at that time. Most patients will be in a water-proof dressing that is removed 14 days after surgery. It is normal to see some dried blood on the dressing. Do not remove your dressing, paper strips or sutures yourself unless you are given permission. Showering is allowed the day after surgery. Do not scrub or remove any dressings. The wound should not be submerged underwater (i.e. in a bathtub or pool) until 4 weeks after surgery ZACHARY stockings If you were given white stockings, these are to be worn at all times except to shower (on both legs) for the first 2 weeks after surgery. Driving You may not drive while taking narcotic pain medication or while in a cast, splint, sling or brace. You, the patient, need to make the final determination about when you are safe to drive, however, the earliest you may consider driving after surgery is below: Hand/Wrist/Elbow Surgery: 3 days Shoulder Surgery: 2 weeks Hip,/Knee/Ankle Surgery: 4 weeks Fracture repair: 6 weeks Return to Work Your return to work depends on what surgery was done and what type of work you do. Please bring any paperwork your employer needs completed to your first post-operative visit. Also, bring a description of your job duties, as this helps us to understand what risks you may face at work. Travel Avoid long distance travel (greater than 1 hour) in airplanes and cars for the first 6 weeks after surgery. If you must travel, you need to have a Doppler ultrasound done before you travel to rule out a blood clot in your legs. Follow-up You should have a follow-up appointment already scheduled 1-2 days after surgery. If not, please contact our office to make this appointment before you leave the hospital. When to call the office It is normal to have swelling and bruising in the limb that was operated on. This will improve with time. It is also normal to have fevers for the first 2 days after surgery. Reasons you should call your doctor include: Uncontrolled pain; Nausea, vomiting, or constipation that does not improve with medication; Fevers over 101.5, chills, sweats; Drainage or bleeding from the wound; Foul odor; Spreading areas of redness; Any other concerns Pending Studies at Discharge: No Stand-Alone Forms: [facility] Medications and DC Order Prescriptions: New aspirin 81 mg Tablet,Delayed Release (Dr/Ec) 81 mg PO BID 30 Days Qty: 60 0RF oxycodone 5 mg tablet 5 mg PO Q4H Qty: 28 0RF diclofenac sodium 75 mg tablet,delayed release (DR/EC) 75 mg PO BID 30 Days Qty: 60 1RF Continued multivitamin Tablet 1 tab PO QAM Citrucel 500 mg Tablet 500 mg PO QAM lisinopril 10 mg tablet 10 mg PO QAM coQ10 (ubiquinol) 200 mg Capsule 200 mg PO QAM omega 1-evn-ozj-fish oil [Fish Oil] 1,000 mg (120 mg-180 mg) Capsule 1 cap PO QAM Caltrate 600 plus D 600 mg (1,500 mg)-800 unit Tablet,Chewable 1 tab PO BID Glucosamine Chondroitin 550-30-1 mg Capsule 2 cap PO QAM atorvastatin [Lipitor] 10 mg Tablet 10 mg PO QAM mometasone 50 mcg/actuation Pound,Non-Aerosol 2 spray INTRANASAL QAM Rx Instructions: administer into each nostril albuterol 90 mcg/actuation Aerosol 90 mcg INHALATION UD PRN (Reason: Shortness Of Breath Or Wheezing) Probiotic 3 billion cell Capsule 3,000 mmu cells PO QAM Rx Instructions: administer with a meal Discharge Orders: Discharge Order (Routine); Ordered 12/16/22 Ordered By: Dillan Cade Admission Data Admit Date/Time: 05/02/22 10:10 Attending Provider: Akhil Hodges Admit Provider: Akhil Hodges Primary Care Provider: Jaylyn Garcia
== END 2022-05-03 11:38 | disposition home health service (06) ==
LOC: PACUINP 05:31 → ASU 05:31 → 3E 13:25